=== PATIENT | female | born 1990 | race American Indian/Alaskan Native ===

== ENCOUNTER 2020-11-13 09:24 | Emergency (ER) | payer OTHER ==
[2020-11-13 09:39] VITALS: BP 133/91
[2020-11-13] MEDS ORDERED: predniSONE 20 MG TAB PO ONE (09:50)
[2020-11-13] MEDS ORDERED: BUTALB/ACETAMINOPHEN/CAFFEINE TAB PO STA (09:50)
[2020-11-13] MEDS ORDERED: KETOROLAC 10 MG TAB PO ONE (09:50)
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
== END 2020-11-13 12:40 | disposition home or self-care (01) ==
LOC: ED 09:24
DX: S29.012A Strain of muscle and tendon of back wall of thorax, initial encounter (principal); F12.10 Cannabis abuse, uncomplicated; Z79.899 Other long term (current) drug therapy; V49.59XA Passenger injured in collision with other motor vehicles in traffic accident, initial encounter; Y93.89 Activity, other specified; Y92.488 Other paved roadways as the place of occurrence of the external cause; Y99.8 Other external cause status
CPT/HCPCS: 36415; 84703; 99283; J7512